=== PATIENT | female | born 1980 | race Caucasian/White ===

== ENCOUNTER 2021-02-25 09:40 | Day surgery (SDC) | payer OTHER ==
[~2021-02-25] VITALS: Ht 162.6 cm; Wt 58.0 kg
[2021-02-25] VITALS (7 sets, daily range): BP systolic 106–120; BP diastolic 60–68
[~2021-02-25 09:40] MED LIST: LEVO75TA98 PO; diazepam 5mg tablet PO PRN; famotidine 20mg tablet PO ONE; meperidine/PF 25mg/ml syringe IV PRN; morphine 2 MG/ML inj. syringe IV PRN; morphine 4 MG/ML inj SYRINge IV PRN; ondansetron/PF 4mg/2ml inj IV PRN; oxymetazoline 15 ML nasal spray NS PRN; proCHLORperazine 10 MG/2 ml inj IV PRN; ringers solution, lacted 1,000 ML IV SCH
[2021-02-25 11:43] LABS: BASOPHILS % (AUTO) 0.5 % (0-1); EOSINOPHILS # (AUTO) 0.1 X10'3 (0-0.9); EOSINOPHILS % (AUTO) 1.1 % (0-6); HEMATOCRIT 41.3 % (35.0-45.0); HEMOGLOBIN 13.3 g/dl (12.0-16.0); LYMPHOCYTES # (AUTO) 1.5 X10'3 (1.1-4.8); LYMPHOCYTES % (AUTO) 16.5 % (21-51); MEAN CORPUSCULAR HEMOGLOBIN 30.1 PG (27.0-31.0); MEAN CORPUSCULAR HGB CONC 32.3 g/dL (33.0-36.5); MEAN CORPUSCULAR VOLUME 93.1 FL (78-98); MEAN PLATELET VOLUME 6.5 FL (7.4-10.4); MONOCYTES # (AUTO) 0.6 X10'3 (0-0.9); MONOCYTES % (AUTO) 6.6 % (2-12); NEUTROPHILS # (AUTO) 6.9 X10'3 (1.8-7.7); NEUTROPHILS % (AUTO) 75.3 % (42-75); PLATELET COUNT 264 X10'3 (140-440); RED BLOOD COUNT 4.43 X10'6 (4.20-5.60); RED CELL DISTRIBUTION WIDTH 13.6 % (11.5-14.5); WHITE BLOOD COUNT 9.2 X10'3 (4.5-11.0)
[2021-02-25 11:44] LABS: PARTIAL THROMBOPLASTIN TIME 29 SECONDS (22-32)
[2021-02-25 11:45] LABS: ALANINE AMINOTRANSFERASE 16 U/L (12-78); ALBUMIN 3.6 G/DL (3.4-5.0); ALBUMIN/GLOBULIN RATIO 1.1 (1.1-1.5); ALKALINE PHOSPHATASE 87 IU/L (46-116); ANION GAP 10 (8-16); ASPARTATE AMINO TRANSFERASE 19 U/L (10-37); BILIRUBIN,TOTAL 0.8 MG/DL (0.1-1.0); BLOOD UREA NITROGEN 13 MG/DL (7-18); BUN/CREATININE RATIO 21.7 (6.6-38.0); CALCIUM 8.2 MG/DL (8.5-10.1); CHLORIDE 107 MMOL/L (99-107); GLUCOSE 76 MG/DL (70-104); POTASSIUM 4.3 MMOL/L (3.5-5.1); SODIUM 142 MMOL/L (135-145); TOTAL CARBON DIOXIDE 25.2 MMOL/L (24-32); eGFR > 90 ML/MIN
[2021-02-25] MEDS ORDERED: cocaine 4% topical solution 4ml bottle ONE (11:49)
[2021-02-25] MEDS ORDERED: mupirocin 2% ointment 22GM ONE (11:49)
[2021-02-25] MEDS ORDERED: LIDOCAINE 1%/EPI 1:100,000 inj. 10 ML multi-dose vial ONE (11:49)
[2021-02-25] MEDS ORDERED: oxymetazoline 15 ML nasal spray NS ONE (11:49)
[2021-02-25] MEDS ORDERED: LIDOcaine 2% (20mg/ml) 5ml vial ONE (12:31)
[2021-02-25] MEDS ORDERED: dexamethasone sod phosphate 4mg/ml inj. ONE (12:31)
[2021-02-25] MEDS ORDERED: fentaNYL/PF 50MCG/1 ML 2ML syringe ONE (12:31)
[2021-02-25] MEDS ORDERED: midazolam 1 mg/ML 2ml injection ONE (12:31)
[2021-02-25] MEDS ORDERED: propofol inj 20 ML IV ONE (12:32)
[2021-02-25] MEDS ORDERED: sevoflurane 250ml liquid IH ONE (13:17)
[2021-02-25] MEDS ORDERED: ondansetron/PF 4mg/2ml inj ONE (13:17)
--- NOTE | 2021-02-25 14:55 | NUR ---
ADMITTED TO PACU FROM OR ACCOMPANIED BY ANESTHESIA. INTIAL PHYSICAL ASSESSMENT DONE AND RECORDED. REPORT RECEIVED FROM ANESTHESIA.
[2021-02-25] MEDS ORDERED: salt irrigation nasal spray 45 ML SPRAY NS PRN (15:05)
--- NOTE | 2021-02-25 16:00 | NUR ---
DISCHARGE CRITERIA MET, DISCHARGE INSTRUCTIONS GIVEN, DEMONSTRATES VERBAL UNDERSTANDING. DISCHARGED HOME IN GOOD CONDITION.
== END 2021-02-25 16:00 | disposition home or self-care (01) ==
LOC: OR 09:40
PROVIDERS: ATTEND Otolaryngology
DX: J34.2 Deviated nasal septum (principal); E03.9 Hypothyroidism, unspecified; Z79.899 Other long term (current) drug therapy; Z98.890 Other specified postprocedural states; Z79.01 Long term (current) use of anticoagulants
CPT/HCPCS: 30520; 36415; 80053; 85025; 85610; 85730; 87635; A6402; C9250; C9803; J1100; J2001; J2250; J2405; J2704; J3010; J7120; Z7506; Z7508; Z7512; A4618; A7000